=== PATIENT | male | born 1980 | race Caucasian/White ===

== ENCOUNTER 2019-01-01 19:30 | Inpatient (IN) | payer OTHER ==
[~2019-01-01] VITALS: Ht 198.1 cm; Wt 77.8 kg
[2019-01-01 21:54] VITALS: PULSE 113
[2019-01-01 21:55] VITALS: Ht 198.1 cm; Wt 77.8 kg
[2019-01-01 21:56] VITALS: BP 120/70; PULSE 112; RESP 18
[2019-01-01] MEDS ORDERED: IBUPROFEN 600 MG TAB PO ONE (22:30)
[2019-01-01] MEDS ORDERED: IBUP800T48 PO (22:38)
[2019-01-01] MEDS: LORAZEPAM 2 MG INJ IV PRN (22:51)
[2019-01-01 23:43] VITALS: BP 134/74; PULSE 116; RESP 18
[2019-01-02] VITALS (10 sets, daily range): BP systolic 129–152; BP diastolic 74–83; PULSE 70–105; RESP 18–19
--- NOTE | 2019-01-02 00:50 | HP ---
Date/Time of Note Date/Time of Note DATE: 01/02/19 TIME: 00:50 Assessment/Plan VTE Prophylaxis Pharmacological prophylaxis: heparin Lines/Catheters IV Catheter Type (from Nrs): Saline Lock Assessment/Plan Assessment/Plan 1. Alcohol intoxication/withdrawal -Banana bag alternating with IV fluid -Librium -As needed Ativan 2. A-fib with RVR -Likely exacerbated by #1 -Continue IV fluids, manage EtOH intoxication/withdrawal -We will initiate meds as needed HPI/ROS Admit Date/Time Admit Date/Time Jan 01, 2019 at 21:33 Hx of Present Illness 38-year-old male with a history of atrial fibrillation and alcohol abuse initially presented on outside hospital with EtOH intoxication and withdrawal. He was transferred to [facility] for insurance reasons. PMH/Family/Social Past Medical History Past Surgical History Past Surgical Hx: other (see hpi) Family History Significant Family History: no pertinent family hx Social History Alcohol Use: other Smoking Status: Unknown if ever smoked Drug Use: other Exam Constitutional: other (no acute distress) Eyes: PERRL ENMT: nl external ears & nose Neck: supple Respiratory: normal air movement Cardiovascular: nl pulses Gastrointestinal: soft Extremities: normal pulses Medications Current Medications Lorazepam (Ativan) 1 mg Q3 PRN IV ANXIETY Last administered on 01/01/19at 22:51; Admin Dose 1 MG; Start 01/01/19 at 22:30 Multivitamins 10 ml/Thiamine HCl 100 mg/Folic Acid 1 mg/Sodium Chloride 1,011.2 ml @ 125 mls/ hr DAILY@09 IVPB ; Start 01/02/19 at 09:00 Coded Allergies: No Known Allergy (Unverified , 01/01/19) Social History Smoking Status: Former smoker Exam/Review of Systems Vital Signs Vitals Vital Signs Date Temp Pulse Resp B/P (MAP) Pulse Ox O2 O2 Flow FiO2 Time Delivery Rate 01/02/19 105 00:00 01/01/19 98.5 18 134/74 96 Room Air 23:43 (94) TAD NOLAN MD Jan 02, 2019 00:50
[2019-01-02] MEDS ORDERED: ALBUTEROL/IPRATROPIUM (NEB) 3 ML AMP HHN PRN (01:00)
[2019-01-02] MEDS ORDERED: LORAZEPAM 2 MG INJ IV PRN (01:00)
[2019-01-02] MEDS ORDERED: NACL 0.9% 3 ML SYG IV SCH (01:00)
[2019-01-02] MEDS ORDERED: ACETAMINOPHEN 325 MG TAB PO PRN (01:00)
[2019-01-02] MEDS: SOD CHLORIDE 0.9% 1,000 ML IV SCH ×3 (02:00→23:26)
[2019-01-02] MEDS: LORAZEPAM 2 MG INJ IV PRN ×7 (03:19→22:40)
[2019-01-02] MEDS: CHLORDIAZEPOXIDE 25 MG CAP PO SCH ×3 (08:55→20:32)
[2019-01-02] MEDS: MULTIVITAMINS 10 ML, THIAMINE 100 MG, FOLIC ACID 1 MG in SOD CHLORIDE 0.9% 1,000 ML IVPB SCH (08:55)
[2019-01-02] MEDS: ENOXAPARIN 40 MG/0.4 ML SYG SC SCH (08:56)
--- NOTE | 2019-01-02 14:07 | PN ---
Date/Time of Note Date/Time of Note DATE: 01/02/19 TIME: 13:59 Assessment/Plan VTE Prophylaxis Risk score (from Nsg)>0 risk: 1 SCD applied (from Nsg): Yes Pharmacological prophylaxis: LMWH Lines/Catheters IV Catheter Type (from Nrsg): Peripheral IV Assessment/Plan Assessment/Plan 1. Alcohol intoxication/withdrawal, banana bag, ativan/librium, supportive care, patient has an appointment with [facility] on 01/08/2019 2. A-fib with RVR, alcohol related, sinus tachycardia now, IVF 3. Anemia, chronic 4. DVT prophylaxis: lovenox Result Diagram: 01/02/19 0651 01/02/19 0651 Results 24hrs Laboratory Tests Test 01/02/19 06:51 White Blood Count 4.5 L Red Blood Count 3.05 L Hemoglobin 10.6 L Hematocrit 30.4 L Mean Corpuscular Volume 99.7 Mean Corpuscular Hemoglobin 34.8 H Mean Corpuscular Hemoglobin Concent 34.9 Red Cell Distribution Width 14.5 Platelet Count 53 L Mean Platelet Volume 10.4 Immature Granulocytes % 0.400 Neutrophils % 50.7 Lymphocytes % 34.1 Monocytes % 11.9 H Eosinophils % 2.0 Basophils % 0.9 Nucleated Red Blood Cells % 0.0 Immature Granulocytes # 0.020 Neutrophils # 2.3 Lymphocytes # 1.6 Monocytes # 0.5 Eosinophils # 0.1 Basophils # 0.0 Nucleated Red Blood Cells # 0.0 Sodium Level 138 Potassium Level 3.8 Chloride Level 100 Carbon Dioxide Level 27 Anion Gap 11 Blood Urea Nitrogen 14 Creatinine 0.52 L Est Glomerular Filtrat Rate mL/min > 60 Glucose Level 101 Calcium Level 8.9 Total Bilirubin 0.8 Direct Bilirubin 0.00 Indirect Bilirubin 0.8 Aspartate Amino Transf (AST/SGOT) 132 H Alanine Aminotransferase (ALT/SGPT) 72 H Alkaline Phosphatase 69 Total Protein 6.5 Albumin 3.5 Globulin 3.00 Albumin/Globulin Ratio 1.16 Triglycerides Level 42 Cholesterol Level 190 LDL Cholesterol, Calculated 85 HDL Cholesterol 97 H Cholesterol/HDL Ratio 1.9 Thyroid Stimulating Hormone (TSH) 3.010 Subjective 24 Hr Interval Summary Free Text/Dictation tremors Exam/Review of Systems Exam Vitals Vital Signs Date Temp Pulse Resp B/P (MAP) Pulse Ox O2 O2 Flow FiO2 Time Delivery Rate 01/02/19 70 12:15 01/02/19 98.4 19 146/75 96 11:40 (98) 01/02/19 Room Air 04:00 Intake and Output 01/01/19 01/01/19 01/02/19 1515:00 23:00 07:00 IntakeIntake Total 950 ml BalanceBalance 950 ml Constitutional: alert, oriented, well developed Psych: anxiety Head: normocephalic, atraumatic Eyes: nl conjunctiva, EOMI, nl lids, PERRL ENMT: nl external ears & nose, nl lips & teeth, nl nasal mucosa & septum Neck: supple, non-tender Respiratory: clear to auscultation, normal air movement; No congested cough, No crackles/rales, No diminished breath sounds, No intercostal retraction, No labored breathing, No respirations, No tactile fremitus, No wheezing, No other Cardiovascular: regular rate and rhythm, nl pulses Gastrointestinal: soft, nl liver, spleen, non-tender Musculoskeletal: nl extremities to inspection Extremities: normal pulses, other (tremors); No calf tenderness, No cyanosis, No clubbing, No edema, No pitting pedal edema, No palpable cord, No tenderness Neurological: NATURAL RESOURCE OFFICER II-XII intact, nl mental status, nl speech, nl strength Skin: nl turgor Lymph: nl lymph nodes Results Results 24hrs Laboratory Tests Test 01/02/19 06:51 White Blood Count 4.5 L Red Blood Count 3.05 L Hemoglobin 10.6 L Hematocrit 30.4 L Mean Corpuscular Volume 99.7 Mean Corpuscular Hemoglobin 34.8 H Mean Corpuscular Hemoglobin Concent 34.9 Red Cell Distribution Width 14.5 Platelet Count 53 L Mean Platelet Volume 10.4 Immature Granulocytes % 0.400 Neutrophils % 50.7 Lymphocytes % 34.1 Monocytes % 11.9 H Eosinophils % 2.0 Basophils % 0.9 Nucleated Red Blood Cells % 0.0 Immature Granulocytes # 0.020 Neutrophils # 2.3 Lymphocytes # 1.6 Monocytes # 0.5 Eosinophils # 0.1 Basophils # 0.0 Nucleated Red Blood Cells # 0.0 Sodium Level 138 Potassium Level 3.8 Chloride Level 100 Carbon Dioxide Level 27 Anion Gap 11 Blood Urea Nitrogen 14 Creatinine 0.52 L Est Glomerular Filtrat Rate mL/min > 60 Glucose Level 101 Calcium Level 8.9 Total Bilirubin 0.8 Direct Bilirubin 0.00 Indirect Bilirubin 0.8 Aspartate Amino Transf (AST/SGOT) 132 H Alanine Aminotransferase (ALT/SGPT) 72 H Alkaline Phosphatase 69 Total Protein 6.5 Albumin 3.5 Globulin 3.00 Albumin/Globulin Ratio 1.16 Triglycerides Level 42 Cholesterol Level 190 LDL Cholesterol, Calculated 85 HDL Cholesterol 97 H Cholesterol/HDL Ratio 1.9 Thyroid Stimulating Hormone (TSH) 3.010 Medications Medication Current Medications Lorazepam (Ativan) 1 mg Q3 PRN IV ANXIETY Last administered on 01/02/19at 12:46; Admin Dose 1 MG; Start 01/01/19 at 22:30 Multivitamins 10 ml/Thiamine HCl 100 mg/Folic Acid 1 mg/Sodium Chloride 1,011.2 ml @ 125 mls/ hr DAILY@09 IVPB Last administered on 01/02/19at 08:55; Admin Dose 125 MLS/HR; Start 01/02/19 at 09:00 Sodium Chloride 1,000 ml @ 100 mls/hr Q10H IV Last administered on 01/02/19at 02:00; Admin Dose 100 MLS/HR; Start 01/02/19 at 00:50 IV Flush (NS 3 ml) 3 ml PER PROTOCOL IV ; Start 01/02/19 at 01:00 Lorazepam (Ativan) 2 mg Q1H PRN IV etoh w/d seizure; Start 01/02/19 at 01:00 Acetaminophen (Tylenol Tab) 650 mg Q6H PRN PO .PAIN 1-3 OR TEMP; Start 01/02/19 at 01:00 Enoxaparin Sodium (Lovenox) 40 mg DAILY SC Last administered on 01/02/19at 08:56; Admin Dose 40 MG; Start 01/02/19 at 09:00 Albuterol/ Ipratropium (Duoneb) 3 ml Q2H RESP THERAPY PRN HHN SHORTNESS OF BREATH; Start 01/02/19 at 01:00 Chlordiazepoxide (Librium) 50 mg TID PO Last administered on 01/02/19at 13:58; Admin Dose 50 MG; Start 01/02/19 at 09:00 TAMEKA ALARCON MD Jan 02, 2019 14:07
[2019-01-02] MEDS ORDERED: traMADol 50 MG TAB PO PRN (21:30)
[2019-01-03] VITALS (10 sets, daily range): BP systolic 123–145; BP diastolic 68–87; PULSE 57–86; RESP 17–20
[2019-01-03] MEDS: LORAZEPAM 2 MG INJ IV PRN ×5 (01:45→22:37)
[2019-01-03] MEDS: CHLORDIAZEPOXIDE 25 MG CAP PO SCH ×3 (09:06→20:42)
[2019-01-03] MEDS: MULTIVITAMINS 10 ML, THIAMINE 100 MG, FOLIC ACID 1 MG in SOD CHLORIDE 0.9% 1,000 ML IVPB SCH (09:06)
[2019-01-03] MEDS: ENOXAPARIN 40 MG/0.4 ML SYG SC SCH (09:10)
[2019-01-03] MEDS ORDERED: MAGNESIUM SULFATE 2 GM/50 ML 50 ML IVPB ONE (15:30)
--- NOTE | 2019-01-03 15:43 | PN ---
Date/Time of Note Date/Time of Note DATE: 01/03/19 TIME: 15:41 Assessment/Plan VTE Prophylaxis Risk score (from Nsg)>0 risk: 1 SCD applied (from Nsg): Yes Pharmacological prophylaxis: LMWH Lines/Catheters IV Catheter Type (from Nrsg): Saline Lock Assessment/Plan Assessment/Plan 1. Alcohol intoxication/withdrawal, banana bag, ativan/librium, supportive care, patient has an appointment with [facility] on 01/08/2019 2. A-fib with RVR, alcohol related, sinus tachycardia now, IVF 3. Anemia, chronic 4. DVT prophylaxis: lovenox 5. Hypomagnesemia, Mg Result Diagram: 01/03/19 0605 01/03/19 0605 Results 24hrs Laboratory Tests Test 01/03/19 06:05 White Blood Count 3.4 #L Red Blood Count 3.30 L Hemoglobin 11.5 L Hematocrit 33.3 L Mean Corpuscular Volume 100.9 Mean Corpuscular Hemoglobin 34.8 H Mean Corpuscular Hemoglobin Concent 34.5 Red Cell Distribution Width 13.6 Platelet Count 45 L Mean Platelet Volume 10.8 H Immature Granulocytes % 0.300 Neutrophils % 47.0 Lymphocytes % 36.5 Monocytes % 10.9 Eosinophils % 4.7 Basophils % 0.6 Nucleated Red Blood Cells % 0.0 Immature Granulocytes # 0.010 Neutrophils # 1.6 Lymphocytes # 1.2 Monocytes # 0.4 Eosinophils # 0.2 Basophils # 0.0 Nucleated Red Blood Cells # 0.0 Sodium Level 141 Potassium Level 4.3 Chloride Level 105 Carbon Dioxide Level 29 Anion Gap 7 Blood Urea Nitrogen 9 Creatinine 0.56 L Est Glomerular Filtrat Rate mL/min > 60 Glucose Level 104 Calcium Level 9.0 Phosphorus Level 4.6 Magnesium Level 1.4 L Subjective 24 Hr Interval Summary Free Text/Dictation still anxious, shaky, sweaty Exam/Review of Systems Exam Vitals Vital Signs Date Temp Pulse Resp B/P (MAP) Pulse Ox O2 O2 Flow FiO2 Time Delivery Rate 01/03/19 98.2 72 20 123/77 97 Room Air 15:20 (92) Intake and Output 01/02/19 01/02/19 01/03/19 1515:00 23:00 07:00 IntakeIntake Total 1100 ml 800 ml BalanceBalance 1100 ml 800 ml Constitutional: alert, oriented, well developed Head: normocephalic, atraumatic Eyes: nl conjunctiva, EOMI, nl lids, PERRL ENMT: nl external ears & nose, nl lips & teeth, nl nasal mucosa & septum Neck: supple, non-tender Respiratory: clear to auscultation, normal air movement; No congested cough, No crackles/rales, No diminished breath sounds, No intercostal retraction, No labored breathing, No respirations, No tactile fremitus, No wheezing, No other Cardiovascular: regular rate and rhythm, nl pulses; No bruits, No diastolic murmur, No edema, No gallop, No irregular rhythm, No jugular venous distention (JVD), No murmurs/extra sounds, No rub, No systolic murmur, No S3, No S4, No other Gastrointestinal: soft, nl liver, spleen, non-tender Musculoskeletal: nl extremities to inspection Extremities: normal pulses; No calf tenderness, No cyanosis, No clubbing, No edema, No pitting pedal edema, No palpable cord, No tenderness, No other Neurological: RELIGIOUS ACTIVITIES DIRECTOR II-XII intact, nl mental status, nl speech, nl strength Results Results 24hrs Laboratory Tests Test 01/03/19 06:05 White Blood Count 3.4 #L Red Blood Count 3.30 L Hemoglobin 11.5 L Hematocrit 33.3 L Mean Corpuscular Volume 100.9 Mean Corpuscular Hemoglobin 34.8 H Mean Corpuscular Hemoglobin Concent 34.5 Red Cell Distribution Width 13.6 Platelet Count 45 L Mean Platelet Volume 10.8 H Immature Granulocytes % 0.300 Neutrophils % 47.0 Lymphocytes % 36.5 Monocytes % 10.9 Eosinophils % 4.7 Basophils % 0.6 Nucleated Red Blood Cells % 0.0 Immature Granulocytes # 0.010 Neutrophils # 1.6 Lymphocytes # 1.2 Monocytes # 0.4 Eosinophils # 0.2 Basophils # 0.0 Nucleated Red Blood Cells # 0.0 Sodium Level 141 Potassium Level 4.3 Chloride Level 105 Carbon Dioxide Level 29 Anion Gap 7 Blood Urea Nitrogen 9 Creatinine 0.56 L Est Glomerular Filtrat Rate mL/min > 60 Glucose Level 104 Calcium Level 9.0 Phosphorus Level 4.6 Magnesium Level 1.4 L Medications Medication Current Medications Lorazepam (Ativan) 1 mg Q3 PRN IV ANXIETY Last administered on 01/03/19at 11:28; Admin Dose 1 MG; Start 01/01/19 at 22:30 Multivitamins 10 ml/Thiamine HCl 100 mg/Folic Acid 1 mg/Sodium Chloride 1,011.2 ml @ 125 mls/ hr DAILY@09 IVPB Last administered on 01/03/19at 09:06; Admin Dose 125 MLS/HR; Start 01/02/19 at 09:00 Sodium Chloride 1,000 ml @ 50 mls/hr Q20H IV Last administered on 01/02/19at 02:00; Admin Dose 100 MLS/HR; Start 01/02/19 at 00:50 IV Flush (NS 3 ml) 3 ml PER PROTOCOL IV ; Start 01/02/19 at 01:00 Lorazepam (Ativan) 2 mg Q1H PRN IV etoh w/d seizure; Start 01/02/19 at 01:00 Acetaminophen (Tylenol Tab) 650 mg Q6H PRN PO .PAIN 1-3 OR TEMP Last administer ed on 01/02/19at 20:31; Admin Dose 650 MG; Start 01/02/19 at 01:00 Enoxaparin Sodium (Lovenox) 40 mg DAILY SC Last administered on 01/03/19at 09:10; Admin Dose 40 MG; Start 01/02/19 at 09:00 Albuterol/ Ipratropium (Duoneb) 3 ml Q2H RESP THERAPY PRN HHN SHORTNESS OF BREATH; Start 01/02/19 at 01:00 Chlordiazepoxide (Librium) 50 mg TID PO Last administered on 01/03/19at 12:36; Admin Dose 50 MG; Start 01/02/19 at 09:00 Tramadol HCl (Ultram) 50 mg Q6H PRN PO MODERATE PAIN LEVEL 4-6; Start 01/02/19 at 21:30 Magnesium Sulfate 50 ml @ 25 mls/hr ONCE ONCE IVPB ; Start 01/03/19 at 15:30; Stop 01/03/19 at 17:29 TAMEKA ALARCON MD Jan 03, 2019 15:43
[2019-01-03] MEDS: SOD CHLORIDE 0.9% 1,000 ML IV SCH ×2 (19:26→22:46)
[2019-01-04] VITALS (8 sets, daily range): BP systolic 110–133; BP diastolic 59–77; PULSE 63–79; RESP 16–18
[2019-01-04] MEDS: LORAZEPAM 2 MG INJ IV PRN ×4 (01:37→15:13)
[2019-01-04] MEDS: CHLORDIAZEPOXIDE 25 MG CAP PO SCH ×3 (08:15→21:00)
[2019-01-04] MEDS: ENOXAPARIN 40 MG/0.4 ML SYG SC SCH (08:18)
[2019-01-04] MEDS: MULTIVITAMINS 10 ML, THIAMINE 100 MG, FOLIC ACID 1 MG in SOD CHLORIDE 0.9% 1,000 ML IVPB SCH (08:19)
--- NOTE | 2019-01-04 13:26 | PN ---
Date/Time of Note Date/Time of Note DATE: 01/04/19 TIME: 13:25 Assessment/Plan VTE Prophylaxis Risk score (from Ns)>0 risk: 1 SCD applied (from Ns): Yes Pharmacological prophylaxis: LMWH Lines/Catheters IV Catheter Type (from Nrsg): Saline Lock Assessment/Plan Assessment/Plan 1. Alcohol intoxication/withdrawal, banana bag, ativan/librium, decrease librium 2. A-fib with RVR, alcohol related, sinus tachycardia now, IVF 3. Anemia, chronic 4. DVT prophylaxis: lovenox Result Diagram: 01/04/19 0547 01/04/19 0547 Results 24hrs Laboratory Tests Test 01/04/19 05:47 White Blood Count 3.7 L Red Blood Count 3.05 L Hemoglobin 10.6 L Hematocrit 31.6 L Mean Corpuscular Volume 103.6 H Mean Corpuscular Hemoglobin 34.8 H Mean Corpuscular Hemoglobin Concent 33.5 Red Cell Distribution Width 13.7 Platelet Count 48 L Mean Platelet Volume 11.4 H Immature Granulocytes % 0.500 H Neutrophils % 41.0 Lymphocytes % 39.6 Monocytes % 12.8 H Eosinophils % 5.3 Basophils % 0.8 Nucleated Red Blood Cells % 0.0 Immature Granulocytes # 0.020 Neutrophils # 1.5 L Lymphocytes # 1.5 Monocytes # 0.5 Eosinophils # 0.2 Basophils # 0.0 Nucleated Red Blood Cells # 0.0 Sodium Level 143 Potassium Level 3.5 Chloride Level 111 H Carbon Dioxide Level 25 Anion Gap 7 Blood Urea Nitrogen 11 Creatinine 0.47 L Est Glomerular Filtrat Rate mL/min > 60 Glucose Level 95 Calcium Level 8.6 Magnesium Level 1.7 Total Bilirubin 0.5 Direct Bilirubin 0.00 Indirect Bilirubin 0.5 Aspartate Amino Transf (AST/SGOT) 81 H Alanine Aminotransferase (ALT/SGPT) 61 Alkaline Phosphatase 72 Total Protein 6.1 Albumin 3.3 Globulin 2.80 Albumin/Globulin Ratio 1.17 Subjective 24 Hr Interval Summary Free Text/Dictation feels better Exam/Review of Systems Exam Vitals Vital Signs Date Temp Pulse Resp B/P (MAP) Pulse Ox O2 O2 Flow FiO2 Time Delivery Rate 01/04/19 98.6 68 16 133/67 98 Room Air 11:37 (89) Intake and Output 01/03/19 01/03/19 01/04/19 1515:00 23:00 07:00 IntakeIntake Total 23396 ml 1245 ml BalanceBalance 17244 ml 1245 ml Constitutional: alert, oriented, well developed Psych: no complaints, nl mood/affect Head: normocephalic, atraumatic Eyes: nl conjunctiva, EOMI, nl lids, PERRL ENMT: nl external ears & nose, nl lips & teeth, nl nasal mucosa & septum Neck: supple, non-tender Respiratory: clear to auscultation, normal air movement; No congested cough, No crackles/rales, No diminished breath sounds, No intercostal retraction, No labored breathing, No respirations, No tactile fremitus, No wheezing, No other Cardiovascular: regular rate and rhythm, nl pulses; No bruits, No diastolic murmur, No edema, No gallop, No irregular rhythm, No jugular venous distention (JVD), No murmurs/extra sounds, No rub, No systolic murmur, No S3, No S4, No other Gastrointestinal: soft, nl liver, spleen, non-tender Musculoskeletal: nl extremities to inspection Extremities: normal pulses; No calf tenderness, No cyanosis, No clubbing, No edema, No pitting pedal edema, No palpable cord, No tenderness, No other Neurological: TIRE WRAPPER II-XII intact, nl mental status, nl speech, nl strength Results Results 24hrs Laboratory Tests Test 01/04/19 05:47 White Blood Count 3.7 L Red Blood Count 3.05 L Hemoglobin 10.6 L Hematocrit 31.6 L Mean Corpuscular Volume 103.6 H Mean Corpuscular Hemoglobin 34.8 H Mean Corpuscular Hemoglobin Concent 33.5 Red Cell Distribution Width 13.7 Platelet Count 48 L Mean Platelet Volume 11.4 H Immature Granulocytes % 0.500 H Neutrophils % 41.0 Lymphocytes % 39.6 Monocytes % 12.8 H Eosinophils % 5.3 Basophils % 0.8 Nucleated Red Blood Cells % 0.0 Immature Granulocytes # 0.020 Neutrophils # 1.5 L Lymphocytes # 1.5 Monocytes # 0.5 Eosinophils # 0.2 Basophils # 0.0 Nucleated Red Blood Cells # 0.0 Sodium Level 143 Potassium Level 3.5 Chloride Level 111 H Carbon Dioxide Level 25 Anion Gap 7 Blood Urea Nitrogen 11 Creatinine 0.47 L Est Glomerular Filtrat Rate mL/min > 60 Glucose Level 95 Calcium Level 8.6 Magnesium Level 1.7 Total Bilirubin 0.5 Direct Bilirubin 0.00 Indirect Bilirubin 0.5 Aspartate Amino Transf (AST/SGOT) 81 H Alanine Aminotransferase (ALT/SGPT) 61 Alkaline Phosphatase 72 Total Protein 6.1 Albumin 3.3 Globulin 2.80 Albumin/Globulin Ratio 1.17 Medications Medication Current Medications Lorazepam (Ativan) 1 mg Q3 PRN IV ANXIETY Last administered on 01/04/19 09:53; Admin Dose 1 MG; Start 01/01/19 at 22:30 Multivitamins 10 ml/Thiamine HCl 100 mg/Folic Acid 1 mg/Sodium Chloride 1,011.2 ml @ 125 mls/ hr DAILY@09 IVPB Last administered on 01/04/19 08:19; Admin Dose 125 MLS/HR; Start 01/02/19 at 09:00 Sodium Chloride 1,000 ml @ 50 mls/hr Q20H IV Last administered on 01/03/19at 2 2:46; Admin Dose 50 MLS/HR; Start 01/02/19 at 00:50 IV Flush (NS 3 ml) 3 ml PER PROTOCOL IV ; Start 01/02/19 at 01:00 Lorazepam (Ativan) 2 mg Q1H PRN IV etoh w/d seizure; Start 01/02/19 at 01:00 Acetaminophen (Tylenol Tab) 650 mg Q6H PRN PO .PAIN 1-3 OR TEMP Last administered on 01/02/19at 20:31; Admin Dose 650 MG; Start 01/02/19 at 01:00 Enoxaparin Sodium (Lovenox) 40 mg DAILY SC Last administered on 01/04/19at 08:18; Admin Dose 40 MG; Start 01/02/19 at 09:00 Albuterol/ Ipratropium (Duoneb) 3 ml Q2H RESP THERAPY PRN HHN SHORTNESS OF BREATH; Start 01/02/19 at 01:00 Tramadol HCl (Ultram) 50 mg Q6H PRN PO MODERATE PAIN LEVEL 4-6; Start 01/02/19 at 21:30 Chlordiazepoxide (Librium) 50 mg BID PO ; Start 01/04/19 at 21:00 TAMEKA ALARCON MD Jan 04, 2019 13:26
[2019-01-04] MEDS: SOD CHLORIDE 0.9% 1,000 ML IV SCH (21:00)
[2019-01-04] MEDS ORDERED: CHLORDIAZEPOXIDE 25 MG CAP PO SCH (21:00)
[2019-01-05 02:33] VITALS: BP 121/73; PULSE 60; RESP 18
[2019-01-05 07:41] VITALS: BP 118/72; PULSE 52; RESP 18
[2019-01-05] MEDS: CHLORDIAZEPOXIDE 25 MG CAP PO SCH ×2 (08:31→13:37)
[2019-01-05] MEDS: ENOXAPARIN 40 MG/0.4 ML SYG SC SCH (08:35)
[2019-01-05] MEDS: SOD CHLORIDE 0.9% 1,000 ML IV SCH (11:26)
[2019-01-05] MEDS: MULTIVITAMINS 10 ML, THIAMINE 100 MG, FOLIC ACID 1 MG in SOD CHLORIDE 0.9% 1,000 ML IVPB SCH (11:35)
[2019-01-05] MEDS ORDERED: ALPR0.25 PO (13:38)
--- NOTE | 2019-01-05 13:42 | DS ---
Date/Time of Note Date/Time of Note DATE: 01/05/19 TIME: 13:39 Discharge Summary Admission/Discharge Info Admit Date/Time Jan 01, 2019 at 21:33 Discharge Date/Time Discharge Diagnosis 1. Alcohol intoxication/withdrawal, stable, xanax prn, follow up with rehab 2. A-fib with RVR, alcohol related, sinus now 3. Anemia, chronic Patient Condition: Stable Hospital Course 38-year-old male with a history of atrial fibrillation and alcohol abuse initially presented on outside hospital with EtOH intoxication and withdrawal. He was transferred to [facility] for insurance reasons. For alcohol withdrawal, patient was treated with librium, banan bag, ativan prn. Symptoms improved. I will discharge him with nanax prn. He has an appointment with Claudia [facility] on 01/08/2019. Patient had one episode of atrial fibrillation that converted to sinus spontaneously. It is alcohol related. Home Meds Active Scripts Alprazolam* (Xanax*) 0.25 Mg Tablet, 0.25 MG PO Q8H PRN for ANXIETY, #10 TAB Prov:TAMEKA ALARCON MD 01/05/19 Reported Medications Ibuprofen* (Motrin*) 800 Mg Tab, 800 MG PO TIDM A PRN for PAIN, TAB 01/01/19 Follow-up Plan PCP in one week Primary Care Provider Care Physician No Primary Pending Labs Laboratory Tests Test 01/05/19 05:28 Sodium Level 139 mmol/L (135-144) Potassium Level 3.7 mmol/L (3.5-5.1) Chloride Level 108 mmol/L (97-110) Carbon Dioxide Level 26 mmol/L (21-31) Anion Gap 5 (5-13) Blood Urea Nitrogen 14 mg/dl (7-20) Creatinine 0.51 mg/dl (0.61-1.24) Est Glomerular Filtrat Rate mL/min > 60 mL/min (>60) Glucose Level 101 mg/dl (70-220) Calcium Level 8.6 mg/dl (8.4-10.2) TAMEKA ALARCON MD Jan 05, 2019 13:42
[2019-01-05 13:59] VITALS: BP 126/75; PULSE 56; RESP 18
== END 2019-01-05 14:30 | disposition home or self-care (01) | DRG 897 ==
LOC: EDBD → TEL 21:33 → 2NE 01-04 14:56
PROVIDERS: ADMIT Internal Medicine; ATTEND Internal Medicine
DX: F10.239 Alcohol dependence with withdrawal, unspecified (principal); F10.229 Alcohol dependence with intoxication, unspecified; I48.91 Unspecified atrial fibrillation; D64.9 Anemia, unspecified; E83.42 Hypomagnesemia
CPT/HCPCS: 80048; 80053; 80061; 83735; 84100; 84443; 85025; 97116; 97161; J1650; J2060; J3411; J3475; J7030

== ENCOUNTER 2019-01-12 14:57 | Inpatient (IN) | payer OTHER ==
[~2019-01-12] VITALS: Ht 198.1 cm; Wt 84.1 kg
[~2019-01-12 14:57] MED LIST: ALPR0.25 PO; IBUP800T48 PO
[2019-01-12 16:40] VITALS: BP 130/78; PULSE 65; Ht 198.1 cm; Wt 84.1 kg
[2019-01-12] MEDS ORDERED: NACL 0.9% 3 ML SYG IV SCH (17:30)
--- NOTE | 2019-01-12 17:47 | HP ---
Date/Time of Note Date/Time of Note DATE: 01/12/19 TIME: 17:44 Assessment/Plan VTE Prophylaxis SCD applied (from Nsg): Yes Pharmacological prophylaxis: heparin Assessment/Plan Hospital Course 38 yo male with alcohol withdrawal syndrome 2/2 alcohol use disorder - librium PRN - thiamine, folate - MVI - Labs pending - consult for community resources - Discharge when stable HPI/ROS Admit Date/Time Admit Date/Time Jan 12, 2019 at 16:31 Hx of Present Illness 38 yo male with h/o alcohol use d/o presenting with withdrawal Patient presented to yesterday requesting detox. Drinks heavily every day. Says has been alcohol dependent for 20 years. Causing problems with relationship so wants to stop. At [place] yesterday labs notable only for mild transaminitis and high etoh level. Had originally expressed some suicidal ideation but cleared by psychiatry there after sobering up. Today he feels withdrawals. Requests sedatives. Denies SI ROS Constitutional: no complaints, improved Eyes: no complaints ENT: no complaints Respiratory: no complaints Cardiovascular: no complaints Gastrointestinal: no complaints Genitourinary: no complaints Musculoskeletal: no complaints Skin: no complaints Neurologic: no complaints Endocrine: no complaints Lymphatic: no complaints Psychological: no complaints, nl mood/affect Immunologic: no complaints PMH/Family/Social Past Medical History Medical History: no pertinent history Medications Current Medications IV Flush (NS 3 ml) 3 ml PER PROTOCOL IV ; Start 01/12/19 at 17:30 Acetaminophen/ Hydrocodone Bitart ([place] (5/325)) 1 tab Q6H PRN PO .MOD PAIN 4- 6; Start 01/12/19 at 17:30 Chlordiazepoxide (Librium) 50 mg Q4H PRN PO wihtdrawl; Start 01/12/19 at 17:30 Coded Allergies: No Known Allergy (Unverified , 01/01/19) Past Surgical History Past Surgical Hx: no surgical history Family History Significant Family History: no pertinent family hx Social History Alcohol Use: heavy Smoking Status: Current some day smoker Drug Use: none Exam/Review of Systems Vital Signs Vitals Vital Signs Date Temp Pulse Resp B/P (MAP) Pulse Ox O2 O2 Flow FiO2 Time Delivery Rate 01/12/19 98.5 65 130/78 98 16:40 (95) Exam Exam Alert Anxious appearing Mild tremors in hands Tongue fasciculations RRR CTAB Soft nt nd ALFREDO Pool MD Jan 12, 2019 17:47
[2019-01-12] MEDS ORDERED: DIAZEPAM 5 MG/ML SYG IV ONE (18:00)
[2019-01-12] MEDS: CHLORDIAZEPOXIDE 25 MG CAP PO PRN (18:08)
[2019-01-12 19:41] VITALS: BP 135/78; PULSE 96; RESP 20
[2019-01-13] MEDS: CHLORDIAZEPOXIDE 25 MG CAP PO PRN ×6 (02:02→23:04)
[2019-01-13 02:14] VITALS: BP 120/73; PULSE 65; RESP 18
[2019-01-13 07:30] VITALS: BP 150/88; PULSE 71; RESP 18
--- NOTE | 2019-01-13 10:34 | PSY ---
Date/Time of Note Date/Time of Note DATE: 01/13/19 TIME: 10:27 Psychiatric Subjective Eval Consent Pt consented to telemedicine: No Subjective Evaluation Patient location: inpatient History of present illness Patient is a 38 year male with with long history of alcohol abuse currently in [facility] for suicidal ideation. On a [id number] evaluation, patient states he has long history of mental illness and alcohol abuse, he reports feeling hopeless,states his drinking has affected his relationship. He also reports auditory hallucination telling him randoms stuff. Patient currently denies suicidal ideation and contracted for safety. He is requesting for Abilify to help him with the voices states he has been on Abilify in the past and that is the only medication that has helped him. Discussed risk and benefit on Abilify and he verbalized understanding. Past psychiatric history Long history of mental illness with hospitalization Hospitalization: yes Allergies: Coded Allergies: No Known Allergy (Unverified , 01/01/19) Substance Abuse Substance abuse history: Yes Prior substance abuse treatmen: Yes Social History Marital status: DPA/Conservatorship: No Psychiatric Objective Eval Review of Systems: Review of Systems: Not Applicable Physical Examination: Physical Examination: Not Applicable Appetite: Decreased Energy: Decreased Interest: Decreased Mental Status Examination: Appearance: Groomed Eye Contact: Fair Behavior: Cooperative Speech: Clear AFFECT: Depressed Mood: Depressed Though Process: Linear Thought Content: Hallucinations Orientation: x3 Cognition: Alert Insight: Moderate Judgement: Moderate Attention Span: Distractible Laboratory Results Laboratory Tests Test 01/12/19 17:53 01/13/19 08:06 White Blood Count 4.5 10^3/ul 4.8 10^3/ul Red Blood Count 3.15 10^6/ul 3.32 10^6/ul Hemoglobin 11.0 g/dl 11.5 g/dl Hematocrit 33.0 % 35.3 % Mean Corpuscular Volume 104.8 fl 106.3 fl Mean Corpuscular Hemoglobin 34.9 pg 34.6 pg Mean Corpuscular Hemoglobin Concent 33.3 g/dl 32.6 g/dl Red Cell Distribution Width 14.5 % 14.3 % Platelet Count 355 10^3/UL 350 10^3/UL Mean Platelet Volume 9.0 fl 9.2 fl Immature Granulocytes % 0.700 % 0.600 % Neutrophils % 45.2 % 45.6 % Lymphocytes % 31.2 % 32.2 % Monocytes % 18.2 % 16.6 % Eosinophils % 2.0 % 2.7 % Basophils % 2.7 % 2.3 % Nucleated Red Blood Cells % 0.0 /100WBC 0.0 /100WBC Immature Granulocytes # 0.030 10^3/ul 0.030 10^3/ul Neutrophils # 2.0 10^3/ul 2.2 10^3/ul Lymphocytes # 1.4 10^3/ul 1.5 10^3/ul Monocytes # 0.8 10^3/ul 0.8 10^3/ul Eosinophils # 0.1 10^3/ul 0.1 10^3/ul Basophils # 0.1 10^3/ul 0.1 10^3/ul Nucleated Red Blood Cells # 0.0 10^3/ul 0.0 10^3/ul Sodium Level 141 mmol/L 144 mmol/L Potassium Level 4.1 mmol/L 4.0 mmol/L Chloride Level 108 mmol/L 106 mmol/L Carbon Dioxide Level 26 mmol/L 30 mmol/L Anion Gap 7 8 Blood Urea Nitrogen 8 mg/dl 12 mg/dl Creatinine 0.56 mg/dl 0.57 mg/dl Est Glomerular Filtrat Rate mL/min > 60 mL/min > 60 mL/min Glucose Level 100 mg/dl 97 mg/dl Calcium Level 8.8 mg/dl 9.0 mg/dl Total Bilirubin 0.4 mg/dl 0.7 mg/dl Direct Bilirubin 0.00 mg/dl 0.00 mg/dl Indirect Bilirubin 0.4 mg/dl 0.7 mg/dl Aspartate Amino Transf (AST/SGOT) 60 IU/L 46 IU/L Alanine Aminotransferase (ALT/SGPT) 62 IU/L 52 IU/L Alkaline Phosphatase 65 IU/L 54 IU/L Total Protein 6.7 g/dl 6.6 g/dl Albumin 3.8 g/dl 3.7 g/dl Globulin 2.90 g/dl 2.90 g/dl Albumin/Globulin Ratio 1.31 1.27 Hemoglobin A1c 4.9 % Assessment and Plan Assessment/Diagnosis Diagnosis Major depressive disorder with psychotic symptoms Recommendation/Plan Medication Management Celexa 10 mg daily, and Abilify 2 mg daily Multiple antipsychotics: No Psychotherapy Provide supportive therapy Discharge Disposition: Other Legal Status: Voluntary (Does not meet criteria for 5150 hold) JOAN BANKS NP Jan 13, 2019 10:34
[2019-01-13] MEDS: FOLIC ACID 1 MG TAB PO SCH (10:36)
[2019-01-13] MEDS ORDERED: CITALOPRAM 20 MG TAB NGT SCH (11:00)
[2019-01-13] MEDS: ARIPIPRAZOLE 2 MG TAB PO SCH (11:08)
--- NOTE | 2019-01-13 11:36 | PN ---
Date/Time of Note Date/Time of Note DATE: 01/13/19 TIME: 11:35 Assessment/Plan VTE Prophylaxis Risk score (from Ns)>0 risk: 0 SCD applied (from Ns): Yes Pharmacological prophylaxis: heparin Lines/Catheters IV [facility] Saline Lock Urinary Cath still in place: No Assessment/Plan Hospital Course 38 yo male with alcohol withdrawal syndrome 2/2 alcohol use disorder - continue librium PRN .withdrawal symptoms still present but subsiding - thiamine, folate - MVI - Abilify per psychaitry for depression - SW consult for community resources - Discharge when stable Result Diagram: 01/13/19 0806 01/13/19 0806 Results 24hrs Laboratory Tests Test 01/12/19 17:53 01/13/19 08:06 White Blood Count 4.5 #L 4.8 Red Blood Count 3.15 L 3.32 L Hemoglobin 11.0 L 11.5 L Hematocrit 33.0 L 35.3 L Mean Corpuscular Volume 104.8 H 106.3 H Mean Corpuscular Hemoglobin 34.9 H 34.6 H Mean Corpuscular Hemoglobin Concent 33.3 32.6 Red Cell Distribution Width 14.5 14.3 Platelet Count 355 # 350 Mean Platelet Volume 9.0 # 9.2 Immature Granulocytes % 0.700 H 0.600 H Neutrophils % 45.2 45.6 Lymphocytes % 31.2 32.2 Monocytes % 18.2 H 16.6 H Eosinophils % 2.0 2.7 Basophils % 2.7 H 2.3 H Nucleated Red Blood Cells % 0.0 0.0 Immature Granulocytes # 0.030 0.030 Neutrophils # 2.0 2.2 Lymphocytes # 1.4 1.5 Monocytes # 0.8 0.8 Eosinophils # 0.1 0.1 Basophils # 0.1 0.1 Nucleated Red Blood Cells # 0.0 0.0 Sodium Level 141 144 Potassium Level 4.1 4.0 Chloride Level 108 106 Carbon Dioxide Level 26 30 Anion Gap 7 8 Blood Urea Nitrogen 8 12 Creatinine 0.56 L 0.57 L Est Glomerular Filtrat Rate mL/min > 60 > 60 Glucose Level 100 97 Calcium Level 8.8 9.0 Total Bilirubin 0.4 0.7 Direct Bilirubin 0.00 0.00 Indirect Bilirubin 0.4 0.7 Aspartate Amino Transf (AST/SGOT) 60 H 46 Alanine Aminotransferase (ALT/SGPT) 62 52 Alkaline Phosphatase 65 54 Total Protein 6.7 6.6 Albumin 3.8 3.7 Globulin 2.90 2.90 Albumin/Globulin Ratio 1.31 1.27 Hemoglobin A1c 4.9 Subjective 24 Hr Interval Summary Free Text/Dictation Started on abilify by psychiatry Reports anxiety, requesting all librium doses Exam/Review of Systems Exam Vitals Vital Signs Date Temp Pulse Resp B/P (MAP) Pulse Ox O2 O2 Flow FiO2 Time Delivery Rate 01/13/19 97.7 71 18 150/88 98 07:30 (108) Exam Appears well but anxious No tremors or fasciculations RRR CTAB Soft tn nd Results Results 24hrs Laboratory Tests Test 01/12/19 17:53 01/13/19 08:06 White Blood Count 4.5 #L 4.8 Red Blood Count 3.15 L 3.32 L Hemoglobin 11.0 L 11.5 L Hematocrit 33.0 L 35.3 L Mean Corpuscular Volume 104.8 H 106.3 H Mean Corpuscular Hemoglobin 34.9 H 34.6 H Mean Corpuscular Hemoglobin Concent 33.3 32.6 Red Cell Distribution Width 14.5 14.3 Platelet Count 355 # 350 Mean Platelet Volume 9.0 # 9.2 Immature Granulocytes % 0.700 H 0.600 H Neutrophils % 45.2 45.6 Lymphocytes % 31.2 32.2 Monocytes % 18.2 H 16.6 H Eosinophils % 2.0 2.7 Basophils % 2.7 H 2.3 H Nucleated Red Blood Cells % 0.0 0.0 Immature Granulocytes # 0.030 0.030 Neutrophils # 2.0 2.2 Lymphocytes # 1.4 1.5 Monocytes # 0.8 0.8 Eosinophils # 0.1 0.1 Basophils # 0.1 0.1 Nucleated Red Blood Cells # 0.0 0.0 Sodium Level 141 144 Potassium Level 4.1 4.0 Chloride Level 108 106 Carbon Dioxide Level 26 30 Anion Gap 7 8 Blood Urea Nitrogen 8 12 Creatinine 0.56 L 0.57 L Est Glomerular Filtrat Rate mL/min > 60 > 60 Glucose Level 100 97 Calcium Level 8.8 9.0 Total Bilirubin 0.4 0.7 Direct Bilirubin 0.00 0.00 Indirect Bilirubin 0.4 0.7 Aspartate Amino Transf (AST/SGOT) 60 H 46 Alanine Aminotransferase (ALT/SGPT) 62 52 Alkaline Phosphatase 65 54 Total Protein 6.7 6.6 Albumin 3.8 3.7 Globulin 2.90 2.90 Albumin/Globulin Ratio 1.31 1.27 Hemoglobin A1c 4.9 Medications Medication Current Medications IV Flush (NS 3 ml) 3 ml PER PROTOCOL IV ; Start 01/12/19 at 17:30 Acetaminophen/ Hydrocodone Bitart ([place] (5/325)) 1 tab Q6H PRN PO .MOD PAIN 4- 6; Start 01/12/19 at 17:30 Chlordiazepoxide (Librium) 50 mg Q4H PRN PO wihtdrawl Last administered on 01/13/19at 11:08; Admin Dose 50 MG; Start 01/12/19 at 17:30 Thiamine HCl (Vitamin B1) 100 mg TID PO ; Start 01/13/19 at 13:00 Folic Acid (Folic Acid) 1 mg DAILY PO Last administered on 01/13/19at 10:36; Admin Dose 1 MG; Start 01/13/19 at 10:00 Aripiprazole (Abilify) 2 mg DAILY PO Last administered on 01/13/19at 11:08; Admin Dose 2 MG; Start 01/13/19 at 10:30 Citalopram Hydrobromide (Citalopram) 10 mg DAILY NGT ; Start 01/14/19 at 09:00 ALFREDO EISENBERG MD Jan 13, 2019 11:36
[2019-01-13] MEDS: THIAMINE 100 MG TAB PO SCH ×2 (13:07→20:43)
[2019-01-13 14:54] VITALS: BP 115/64; PULSE 71; RESP 17
[2019-01-13] MEDS: HYDROCODONE/APAP (5/325) TAB PO PRN (15:30)
[2019-01-13 19:35] VITALS: BP 116/75; PULSE 66; RESP 18
[2019-01-14 01:51] VITALS: BP 110/61; PULSE 57; RESP 18
[2019-01-14 07:57] VITALS: BP 125/71; PULSE 52
[2019-01-14] MEDS: ARIPIPRAZOLE 2 MG TAB PO SCH (08:24)
[2019-01-14] MEDS: CHLORDIAZEPOXIDE 25 MG CAP PO PRN ×2 (08:24→12:12)
[2019-01-14] MEDS: FOLIC ACID 1 MG TAB PO SCH (08:24)
[2019-01-14] MEDS: THIAMINE 100 MG TAB PO SCH ×2 (08:24→12:12)
[2019-01-14] MEDS: HYDROCODONE/APAP (5/325) TAB PO PRN (08:27)
[2019-01-14] MEDS ORDERED: CITALOPRAM 10 MG TAB NGT SCH (09:00)
--- NOTE | 2019-01-14 14:22 | DS ---
Date/Time of Note Date/Time of Note DATE: 01/14/19 TIME: 14:21 Discharge Summary Admission/Discharge Info Admit Date/Time Jan 12, 2019 at 16:31 Discharge Date/Time Discharge Diagnosis Alcohol withdrawal syndrome Patient Condition: Stable Hx of Present Illness 38 yo male with h/o alcohol use d/o presenting with withdrawal Patient presented to yesterday requesting detox. Drinks heavily every day. Says has been alcohol dependent for 20 years. Causing problems with re lationship so wants to stop. At [place] yesterday labs notable only for mild transaminitis and high etoh level. Had originally expressed some suicidal ideation but cleared by psychiatry there after sobering up. Today he feels withdrawals. Requests sedatives. Denies SI Hospital Course 38 yo male with alcohol withdrawal syndrome 2/2 alcohol use disorder He was treated with librium PRN for withdrawal symptoms. He resolved to baseline. Reported chornic anxiety and we discussed management options. Given librium to take for a day after discharge Home Meds Active Scripts Alprazolam* (Xanax*) 0.25 Mg Tablet, 0.25 MG PO Q8H PRN for ANXIETY, #10 TAB Prov:TAMEKA ALARCON MD 01/05/19 Reported Medications Ibuprofen* (Motrin*) 800 Mg Tab, 800 MG PO TIDM A PRN for PAIN, TAB 01/01/19 Primary Care Provider Care Physician No ALFREDO Jordan MD Jan 14, 2019 14:22
== END 2019-01-14 13:40 | disposition home or self-care (01) | DRG 897 ==
LOC: 5EC 16:31
PROVIDERS: ADMIT Internal Medicine; ATTEND Internal Medicine
DX: F10.239 Alcohol dependence with withdrawal, unspecified (principal); F32.3 Major depressive disorder, single episode, severe with psychotic features; Z72.0 Tobacco use
CPT/HCPCS: 80053; 83036; 85025; J3360

== ENCOUNTER 2019-01-20 13:11 | Emergency (ER) | payer SELFPAY ==
[~2019-01-20] VITALS: Ht 198.1 cm; Wt 80.1 kg
[2019-01-20 13:37] VITALS: BP 120/63; PULSE 62; RESP 18; Ht 198.1 cm; Wt 80.1 kg
== END 2019-01-20 15:55 | disposition left against medical advice (07) ==
LOC: FTE 13:11
DX: Z53.21 Procedure and treatment not carried out due to patient leaving prior to being seen by health care provider (principal)

== ENCOUNTER 2019-03-03 01:16 | Emergency (ER) | payer OTHER ==
[~2019-03-03] VITALS: Ht 198.1 cm; Wt 74.8 kg
[2019-03-03 01:19] VITALS: Ht 198.1 cm; Wt 74.8 kg
--- NOTE | 2019-03-03 06:54 | ERD ---
ER Documentation Chief Complaint Chief Complaint bib friend for alcohol intoxication/withdrawls x 2 months ROS All systems reviewed and are negative except as per history of present illness. Medications Home Meds Active Scripts Alprazolam* (Xanax*) 0.25 Mg Tablet, 0.25 MG PO Q8H PRN for ANXIETY, #10 TAB Prov:TAMEKA ALARCON MD 01/05/19 Reported Medications Ibuprofen* (Motrin*) 800 Mg Tab, 800 MG PO TIDM A PRN for PAIN, TAB 01/01/19 Allergies Allergies: Coded Allergies: No Known Allergy (Unverified , 03/03/19) PMhx/Soc History of Surgery: Yes (testicular cancer (2013) ) Anesthesia Reaction: No Hx Neurological Disorder: No Hx Respiratory Disorders: No Hx Cardiac Disorders: Yes (History of tachcardia/SVT/A Fib during EtOH withdrawal 2 months ago) Hx Psychiatric Problems: No Hx Miscellaneous Medical Probl: No Hx Alcohol Use: Yes (1/5 bottole of [place]/ day x 20 years ) Hx Substance Use: No Hx Tobacco Use: Yes (5 cigarretes /day x 20 years) Physical Exam Vitals Vital Signs Date Temp Pulse Resp B/P (MAP) Pulse Ox O2 O2 Flow FiO2 Time Delivery Rate 03/03/19 86 20 118/91 98 Room Air 07:03 (100) 03/03/19 97.8 103 20 157/99 97 01:19 (118) Physical Exam Const: No acute distress Head: Atraumatic Eyes: Normal Conjunctiva ENT: Normal External Ears, Nose and Mouth. Neck: Full range of motion. No meningismus. Resp: Clear to auscultation bilaterally Cardio: Regular rate and rhythm, no murmurs Abd: Soft, non tender, non distended. Normal bowel sounds Skin: No petechiae or rashes Back: No midline or flank tenderness Ext: No cyanosis, or edema Neur: Awake and alert Psych: Normal Mood and Affect Results 24 hrs Current Medications Medications Dose Sig/Elder Start Time Status Last (Trade) Ordered Route PRN Stop Time Admin Dose Reason Admin Lorazepam 1 mg ONCE ONCE 03/03/19 DC 03/03/19 (Ativan) IV 07:00 07:13 03/03/19 07:01 Procedures/MDM DOCUMENTS REVIEWED: ED nurse, prior ED, prior records, ED report LAB INTERPRETATION: [] EKG: Time: [ ] My Interpretation IMAGING: [ ] ED COURSE: [] REEXAMINATION/REEVALUATION: Time: 08:45 MEDICAL DECISION MAKING: []. Stable for discharge with precautionary instructions and outpatient follow-up as counseled. Counseled patient[ and family] regarding diagnostic workup, diagnosis and need for followup. Understands to return to ED if symptoms recur, worsen or any other concerns. Departure Diagnosis: Primary Impression: Alcohol withdrawal syndrome without complication Additional Impressions: Chronic alcohol abuse Homelessness Condition: Stable GENESIS MARCOS MD March 03, 2019 06:53
[2019-03-03] MEDS ORDERED: LORAZEPAM 2 MG INJ IV ONE (07:00)
[2019-03-03 10:10] VITALS: BP 113/69; PULSE 81; RESP 18
== END 2019-03-03 10:16 | disposition home or self-care (01) ==
LOC: E/R 01:16
DX: F10.239 Alcohol dependence with withdrawal, unspecified (principal); Z59.0 Homelessness; Z85.47 Personal history of malignant neoplasm of testis; Z87.891 Personal history of nicotine dependence
CPT/HCPCS: 96374; J2060; Z7502; Z7610